=== PATIENT | female | born 1990 | race Caucasian/White ===

== ENCOUNTER → 2018-02-06 | Outpatient (CLI) | payer SELFPAY | LOC: LAB.O 14:46 | PROVIDERS: ATTEND Nurse Practitioner Family | DX: H15.89 Other disorders of sclera (principal) ==

== ENCOUNTER → 2018-02-06 | Outpatient (CLI) | payer OTHER ==
--- NOTE | 2018-02-06 16:49 | US ---
EXAM DESCRIPTION: Gall Bladder: ULTRASOUND. CLINICAL HISTORY: NAUSEA. Patient states fasting since 6:00 AM. COMPARISON: None. TECHNIQUE: Transabdominal scanning: Shen-scale and Doppler modes.. Technically difficult study due to patient body habitus. FINDINGS: Gallbladder: Contracted. No fluid around the gallbladder. Thickening secondary to contraction. Non-tender with transducer pressure. Common bile duct: caliber 4.3 mm within normal limits. Liver: normal echogenicity; contour liver capsule smooth where seen. No fluid around the liver. Intrahepatic biliary ducts normal caliber. Doppler hepatopedal flow portal vein with 9.2 mm caliber.. Long axis right lobe 12.7 cm. Pancreas: The head was slightly prominent measuring approximately 3 cm diameter. Body and tail normal size and echogenicity. Duct not seen. Right kidney: 8.6 cm long axis. Minimal cortical thinning with normal echogenicity. No hydronephrosis or perinephric fluid. IMPRESSION: 1. Gallbladder was contracted even in fasting state no large stones were seen. Cannot exclude small stones or sludge. Nontender during scanning with no fluid surrounding the [place]. 2. Liver was unremarkable. Normal intrahepatic ducts. No ascites. 3. Pancreatic head slightly prominent but pancreatic duct and distal common bile duct normal caliber. Consider follow-up CT scan of the abdomen with IV contrast. 4. Minimal cortical thinning of the right kidney which may be physiologic; otherwise unremarkable. The findings were discussed directly by phone with ELVIS Chu at approximately 1405 hours on 02/06/2018 Electronically signed by: Blaise Velasquez MD 02/06/2018 4:47 PM CDT
== END ==
LOC: US 13:35
PROVIDERS: ATTEND Nurse Practitioner Family
DX: R11.0 Nausea (principal)

== ENCOUNTER → 2018-02-19 | Outpatient (CLI) | payer OTHER | LOC: YCFC.O 10:05 | PROVIDERS: ATTEND Family Medicine | DX: B17.9 Acute viral hepatitis, unspecified (principal) ==

== ENCOUNTER → 2018-03-20 | Outpatient (CLI) | payer OTHER | LOC: YCFC.O 09:43 | PROVIDERS: ATTEND Family Medicine | DX: K52.9 Noninfective gastroenteritis and colitis, unspecified (principal) ==

== ENCOUNTER → 2018-05-22 | Outpatient (CLI) | payer OTHER | LOC: LAB.O 17:29 | PROVIDERS: ATTEND Nurse Practitioner Family | DX: K71.2 Toxic liver disease with acute hepatitis (principal); R74.0 Nonspecific elevation of levels of transaminase and lactic acid dehydrogenase [LDH] ==